=== PATIENT | male | born 1975 | race Caucasian/White ===

== ENCOUNTER → 2019-12-09 09:19 | Outpatient (CLI) | payer OTHER, SELFPAY ==
[2019-12-09 10:52] LABS: Add Manual Diff / Slide Review NO; Basophils Absolute Auto 0 /uL (0-100); Basophils Percent Auto 0.6 % (0-2); Eosinophils Absolute Auto 100 /uL (0-450); Eosinophils Percent Auto 1.4 % (2-4); Hematocrit 44.4 % (41-53); Hemoglobin 15.5 g/dL (13.5-17.5); Lymphocytes Absolute Auto 1700 /uL (1100-4500); Lymphocytes Percent Auto 32.6 % (25-40); Mean Corpuscular HGB Conc 34.9 % (30-36); Mean Corpuscular Hemoglobin 30.6 PG (26-34); Mean Corpuscular Volume 87.8 fL (80-100); Monocytes Absolute Auto 400 /uL (0-900); Monocytes Percent Auto 8.6 % (3-14); Neutrophils Absolute Auto 2900 /uL (1500-7000); Neutrophils Percent Auto 56.8 % (50-75); Platelet Count 171 X10^3/uL (150-400); Red Blood Cell Count 5.06 X10^6/uL (4.5-5.9); Red Cell Distribution Width 12.8 % (11.6-14.8); White Blood Cell Count 5.1 X10^3/uL (4.5-11.0)
[2019-12-09 11:06] LABS: Alanine Aminotransferase 33 IU/L (<50); Albumin 4.9 g/dL (3.5-5.0); Albumin Globulin Ratio 1.6 (1.0-2.8); Alkaline Phosphatase 84 U/L (38-126); Aspartate Aminotransferase 38 IU/L (17-59); BUN Creatinine Ratio 32.2 (6-22); Bilirubin Total 0.9 mg/dL (0.2-1.3); Blood Urea Nitrogen 29 mg/dL (9-20); Calcium 9.9 mg/dL (8.4-10.2); Carbon Dioxide 30 mmol/L (22-32); Chloride 103 mmol/L (98-107); Cholesterol 195 mg/dL (140-199); Estimated Glomerular Filt Rate > 60.0 mL/min (>60); Globulin 3.1 g/dL (1.7-4.1); Glucose 103 mg/dL (70-100); HDL Cholesterol 59 mg/dL (40-60); HEMOLYSIS < 15 (0-50); LDL Cholesterol Calculated 121 mg/dL (<100); Potassium 4.6 mmol/L (3.4-5.1); Sodium 142 mmol/L (137-145); Triglycerides 73 mg/dL (35-150)
[2019-12-09 11:35] LABS: TSH w/ Reflex to FT4 2.16 uIU/mL (0.47-4.68)
== END ==
PROVIDERS: PCP Family Medicine; Referring Provider Family Medicine; Visit Provider Family Medicine
DX: R63.4 Abnormal weight loss (principal)
CPT/HCPCS: 36415; 80053; 80061; 84443; 85025

== ENCOUNTER 2022-12-01 12:15 | Day surgery (SDC) | payer OTHER, SELFPAY ==
[2022-11-25 14:48] VITALS: BMI 22.4
[2022-12-01] VITALS (10 sets, daily range): BP systolic 114–134; BP diastolic 68–84; PULSE 57–73; RESP 12–20; TEMP 36.1–37.2; O2SAT 99–100; BMI 22.4
--- NOTE | 2022-12-01 | PATH_ITS ---
[facility] Accession Number: [id number] No. of containers..01 Tissue . 01 Material submitted: . buttock - LEFT GLUTEAL SUBCUTANEAL CYST . 01 Diagnosis: Left Gluteal, Excision: Consistent with fragments of epidermal inclusion cyst with evidence of prior rupture. MRV 12/07/2022 1309 Local . 01 Electronically signed: . William Kaufman MD, Dermatopathologist NPI- [id number] . 01 Gross description: . The specimen is received in formalin labeled with the patient's name, , and left gluteal subcutaneous cyst, and consists of multiple fragments of skin attached to a allen to brown membranous disrupted cystic structure, all measuring 6.2 x 6.2 x 2.3 cm. The cutaneous surface is allen wrinkled and unremarkable, and the cyst has thin smooth lovett with no cystic contents identified. The presumed margins are inked blue. Cracker Off sections are submitted in cassettes A1-A2. ([id number]) /MRV 12/02/2022 1326 Local . 01 Pathologist provided ICD-10: L72.0 . 01 CPT . 684283 Specimen Comment: A courtesy copy of this report has been sent to [phone] Performed at: 01 [facility] [address] [place] [address] [address], [place], [place] [id number] MD Antonio Storm MD Phone: [phone]
[2022-12-01] MEDS: LACTATED RINGERS 1,000 ML 120 ML IV ×2 (13:00→14:48)
--- NOTE | 2022-12-01 13:19 | PM.PREOP ---
Pre-operative Note COVID-19 COVID-19 status: Not tested Interval Note History & Physical reviewed/Exam performed by Physician: Yes Changes to H&P: No ASA Class (for procedural sedation): I
--- NOTE | 2022-12-01 13:33 | SUR.OPER ---
Lateral on OR table, head on pillow, gel axillary roll in place, bottom leg bent with gel pad under knee to foot, upper leg straight and supported with pillows. Upper arm supported by pillows and secured over bottom arm to padded arm board. Safety belt at hip, tape over blanket lower legs.
[2022-12-01] MEDS: LIDOCAINE 1% W/EPI 20 ML INJ (14:10)
[2022-12-01] MEDS: BUPIVACAINE 0.25% (PF) VIAL 30 ML INJ (14:10)
--- NOTE | 2022-12-01 15:09 | PM.OP.1 ---
Operative Date/Time/Diagnoses Date of procedure: 12/01/22 Time of procedure: 15:09 Pre-op diagnosis: Left gluteal subcutaneous cyst Post-op diagnosis: same Procedure & Clinicians Procedure: Excisional biopsy of left gluteal subcutaneous cyst Same procedure as scheduled: Yes Surgeon: Jason El Operative Notes Procedure in detail: The patient is a 47-year-old man who presented with a left gluteal cysts that had enlarged and was bothersome. He was consented for excisional biopsy of the left gluteal cyst. The mass was about 9 cm x 6 cm x 5 cm. The patient was brought to the operating room and general anesthesia was induced with LMA. He was then positioned in a semi-lateral position with his left leg over his right leg and tape to retract is gluteal skin. We prepped and draped the left gluteal skin over the mass. We started with a 9 cm transverse incision over the mass. The mass appeared to be contiguous with the dermis and did rupture spilling thick cheesy substance suggesting a sebaceous cyst. It did not have any odor. Once the cyst was completely deflated we decided to excise an ellipse of skin to completely remove the capsule. The capsule was then completely excised and sent along with the skin. We irrigated the wound cavity. A few bleeders were cauterized. We injected some additional Marcaine into the deep tissue. The deepest aspect of the cavity abutted the gluteal muscle fascia. We then closed in layers using multiple interrupted 3-0 Vicryl dermal sutures and a running 4-0 Monocryl subcuticular stitch. Steri-Strips and Telfa were applied. EBL: 10 mL Specimen: Left gluteal subcutaneous cyst capsule Post-operative Condition: stable Disposition: PACU
== END 2022-12-01 16:34 | disposition home or self-care (01) ==
PROVIDERS: PCP Family Medicine; Referring Provider Surgery; Visit Provider Surgery
PROC: (CPT 11406; principal; 2022-12-01 13:15)
DX: L72.0 Epidermal cyst (principal); R20.8 Other disturbances of skin sensation
CPT/HCPCS: 11406; 12034; J1100; J1885; J2250; J2405; J3010

== ENCOUNTER 2024-03-11 09:53 | Emergency (ER) | payer OTHER, SELFPAY ==
[2024-03-11 10:07] VITALS: BP 118/85; PULSE 73; RESP 99; TEMP 37; O2SAT 100; BMI 21.1
--- NOTE | 2024-03-11 10:12 | DI.RAD.S_ITS ---
PROCEDURE: XR FOOT LT MIN 3V INDICATIONS: foot inujry TECHNIQUE: 3 views of the foot were acquired. COMPARISON: None. FINDINGS: Bones: Comminuted fracture 1st proximal phalanx without significant displacement. Remainder of the osseous structures unremarkable. First metatarsophalangeal joint arthritic changes Soft tissues: No tibiotalar joint effusion. Achilles tendon appears normal. IMPRESSION: Comminuted 1st proximal phalangeal fracture without articular involvement. Approved by: Zion Zapata M.D. on 03/11/2024 at 10:17
--- NOTE | 2024-03-11 12:21 | ED.LOWEXIN ---
HPI - Extremity Injury (Lower) General Chief Complaint: Extremity Injury, Lower Stated Complaint: great toe left injury Time Seen by Provider: 03/11/24 12:05 Source: patient and family Mode of arrival: Wheelchair History of Present Illness HPI Narrative: 49-year-old male without chronic medical history presents with a chief complaint of an injury to his left great toe. Just prior to his arrival he was doing a school related function with his child and was running and stubbed his left great toe and now has significant pain and swelling. There is no numbness, tingling or weakness Related Data Previous Rx's Medication Instructions Recorded hydrocodone 5 mg-acetaminophen 325 1 tab PO Q4-6H PRN pain #20 tabs 03/11/24 mg tablet Allergies Allergy/AdvReac Type Severity Reaction Status Date / Time No Known Drug Allergies Allergy Verified 12/16/22 13:52 Review of Systems Review of Systems Narrative: GENERAL: Denies chills, fatigue, malaise, fever, sweats. HEENT: Denies sinus pain, ear pain, sore throat, difficulty swallowing, dizziness. RESPIRATORY: Denies dyspnea, cough, wheezing, hemoptysis, sputum. CARDIOVASCULAR: Denies chest pain, palpitations, orthopnea, edema, GASTROINTESTINAL: Denies nausea, vomiting, abdominal pain, diarrhea, constipation, melena. : Denies dysuria, frequency, incontinence, hematuria, urinary retention. MUSCULOSKELETAL: See HPI SKIN: Denies rash, skin lesions, or other NEUROLOGIC: Denies weakness, headache, numbness, change in speech, confusion, seizures, incoordination. PSYCHIATRIC: No concerning psychosocial issues. 12 point review of systems is negative except for those stated above Patient History Medical History (Updated 03/11/24 @ 12:33 by Oliver Balbuena DO) Severe needle phobia Social History marital status: household members: spouse Smoking Status: Never smoker alcohol intake: never substance use type: does not use Smoking Status: Never smoker alcohol intake frequency: 0-2 drinks per day Substance Use Type: does not use Exam Narrative Exam Narrative: GEN: AOx3 and in mild distress EYES: Pupils are equal, round, and reactive to light and accommodation. Extraoccular muscles are intact bilaterally. There is no subconjunctival hemorrhage or exudate. CHEST: Lungs are clear to auscultation bilaterally and free of wheezes, rales, or rhonchi. Heart rate is regular rhythm, there are no murmurs, clicks, rubs, or gallops. There is no chest wall tenderness. ABD: Abdomen is soft and nontender. There is no guarding or rebound. Bowel sounds are normal in all 4 quadrants. There is no mass or organomegaly. EXT: pain and swelling to left great toe. Closed, isolated, and N/V intact SKIN: Warm, pink, and dry. No erythema or rash Initial Vital Signs Initial Vital Signs: Vital Signs Temperature 98.6 F 03/11/24 10:07 Pulse Rate 73 03/11/24 10:07 Respiratory Rate 99 H 03/11/24 10:07 Blood Pressure 118/85 03/11/24 10:07 Pulse Oximetry 100 03/11/24 10:07 Oxygen Delivery Method Room Air 03/11/24 10:07 Procedures Orthopedic Splinting/Casting Injury #1: Side: left Lower Extremity Injury Location: toe Post splinting neuro exam: intact Post splinting vascular exam: intact Placed by: Nursing Course Orders Ordered: ED Orders 03/11/24 10:12 XR foot LT min 3V Stat Vital Signs Vital signs: Vital Signs - 8 hr 03/11/24 10:07 03/11/24 12:48 Temperature 98.6 F Pulse Rate 73 90 Respiratory Rate 99 H 16 Blood Pressure 118/85 116/73 Pulse Oximetry 100 99 Oxygen Delivery Method Room Air Room Air MDM - Extremity Injury (Lower) MDM Narrative Medical decision making narrative: [49] year old patient presents with isolated great toe injury, closed, neurovascularly intact Multiple etiologies for patient's symptoms considered including, but not limited to: [Fracture versus sprain versus contusion] Prior Charts reviewed in our EMR Primary Historian: patient Imaging reviewed: Comminuted left 1st phalanx fracture without articular involvement Patient's symptoms improved over duration of stay with above-stated therapies. Findings and discharge diagnosis discussed with patient/family followed by verbalization of understanding Return precautions discussed with patient/family whom verbalize understanding of diagnosis and plan Discharge Plan Departure Patient Disposition: Home Clinical Impression: Closed fracture of left great toe Qualifiers: Encounter type: initial encounter Phalanx: proximal Fracture alignment: displaced Qualified Code(s): S92.412A - Displaced fracture of proximal phalanx of left great toe, initial encounter for closed fracture Instructions: DI for Toe Fracture Activity Restrictions/Additional Instructions: *You have been diagnosed with [Left Great Toe Fracture ] *What to do: *Please continue to take your regular medications as directed. [x ] New medication prescriptions sent to your pharmacy: [facility] [ ] New medication written as a paper prescription [x] Tylenol and occasional Motrin for pain *Please follow up with [Tatyana ] of [facility] in 2-3 days, call for an appointment. Let them know you were seen in the Emergency Department and that we ask that you be seen in follow up. We will electronically transmit a record of today's note if your PCP is in our system *Return to Emergency Department if you should have any new, worsening or concerning symptoms, such as [worsening pain, significant swelling, cold extremities, numbness, tingling, weakness or other bothersome symptoms Splint Care: Keep splint clean and dry. Elevated affected body part to decrease swelling. OK to use ice pack on the affected body part. Use for 15-20 minutes each time, for 5-6x per day. If you develop worsening pain, numbness, tingling, discoloration of the affected body part, loosen the splint by loosening the MP wrap, and either see your doctor for an urgent re-assessment, or return to the Emergency Department. Return to the Emergency Department for any new or worsening symptoms. Prescriptions: New hydrocodone-acetaminophen 5-325 mg tablet 1 tab PO Q4-6H PRN (Reason: pain) Qty: 20 0RF Referrals: Silvio Mclean MD [Primary Care Provider] - Stand Alone Forms: Patient Portal/API
[2024-03-11 12:48] VITALS: BP 116/73; PULSE 90; RESP 16; O2SAT 99
== END 2024-03-11 12:49 | disposition home or self-care (01) ==
PROVIDERS: Emergency Provider Emergency Medicine; PCP Family Medicine
DX: S92.412A Displaced fracture of proximal phalanx of left great toe, initial encounter for closed fracture (principal); W22.8XXA Striking against or struck by other objects, initial encounter; Y93.02 Activity, running
CPT/HCPCS: 73630; 99281; 99283